=== PATIENT | male | born 1935 | race Caucasian/White ===

== ENCOUNTER 2023-03-26 10:34 | Outpatient (CLI) | payer MEDICARE, SELFPAY ==
[2023-03-26 11:41] LABS: Anion Gap 7 mmol/L (8-16); Blood Urea Nitrogen 20 mg/dL (7-18); Calcium 8.9 mg/dL (8.5-10.1); Carbon Dioxide 30 mmol/L (21-32); Chloride 100 mmol/L (98-108); Estimated Glomerular Filt Rate 55; Glucose 80 mg/dL (70-99); Osmolality Calculated 285 mOsm/kg (285-295); Potassium 4.3 mmol/L (3.5-5.1); Sodium 137 mmol/L (136-145)
== END 2023-03-26 10:35 | disposition home or self-care (01) ==
PROVIDERS: PCP Family Medicine; Visit Provider Anesthesiology
DX: Z01.818 Encounter for other preprocedural examination (principal); Z79.899 Other long term (current) drug therapy
CPT/HCPCS: 36415; 80048

== ENCOUNTER 2023-03-29 04:08 | Day surgery (SDC) | payer MEDICARE, SELFPAY ==
[2023-03-22 11:44] VITALS: BMI 25.1
--- NOTE | 2023-03-22 11:51 | PC.NURSE ---
Report to the Outpatient Waiting Room, entrance under the green pavilion located off [facility], at time ___0600____ on date ___03/29/23____. Planned Procedure Time: ___729 . Time changes happen often and if your time is changed the preop area will call you the afternoon before. - You and your visitor will be asked to self-screen and do not enter if you have any COVID symptoms. - A mask is optional within the hospital at this time. Patients may have clear liquids (water, carbonated beverages, clear teas, apple juice) until 3 hours prior to surgery (0430 AM) with a maximum of 20 ounces. - No food from midnight until time of surgery - Infants may have breast milk until 4 hours before surgery, formula 6 hours prior to surgery. - Children will be allowed to drink immediately following surgery. If applicable, please bring a bottle or sippy cup to assist with drinking. Juice, water, soda, and popsicles are readily available. For infants on formula, please bring formula the day of surgery. Pacifiers are allowed. Take the following medications with a SIP of water the morning of surgery: ____AMLODIPINE DO NOT STOP ANY OF YOUR OTHER PRESCRIPTION MEDICATIONS PRIOR TO SURGERY ?EXCEPT THE FOLLOWING Medications to discontinue per physician NONE Date to take last dose Please no make-up, nail serbian, hairspray, perfume, deodorant, or body powder the day of surgery. No jewelry (including any body piercings) or valuables the day of surgery, leave them at home. Please take a shower or bath the night before, or the morning of, surgery with an antibacterial soap. Wear comfortable, loose fitting clothing. Children are encouraged to wear pajamas. - Jewelry must be removed prior to entering the operating room. Rings and piercings that are not removed may be cut off. - The hospital will not accept responsibility for valuables. - Please leave all valuables, including medications, at home the day of surgery. If you are going home after surgery, a licensed city bus driver must drive you home. - NO public transportation without another adult if you receive anesthesia. - We recommend that an adult stay with you for 24 hours following discharge. - We also recommend that you do not drive, make important decision, drink alcoholic beverages, or take any drugs that were not prescribed by your health care provider for at least 24 hours after your discharge time. For Pediatric surgeries, we recommend two adults accompany the child home. Follow any additional instructions given to you from your surgeon. If you or anyone in your household have experienced Covid symptoms in the past week, please notify your surgeon or the nurse liaison at the phone number below for possible testing. Telephone instructions given to _PATIENT_and asked if any additional questions and then verbalized understanding. Patient advised to call surgeon office or pre surgery nurse liaison [phone] if any additional questions.
[2023-03-29] VITALS (8 sets, daily range): BP systolic 119–158; BP diastolic 55–71; PULSE 79–99; RESP 14–16; TEMP 36.6–37.1; O2SAT 96–100
[2023-03-29] MEDS: LACTATED RINGERS 1,000 ML 30 ML IV CONT (07:01)
--- NOTE | 2023-03-29 07:11 | P.PNAN_ITS ---
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 Patient Data Age: 87 Gender: M Height: 1.78 m Weight: 76.9 kg Allergies Allergy/AdvReac Type Severity Reaction Status Date / Time No Known Allergies Allergy Verified 03/29/23 06:13 Home Medications Medication Instructions Recorded Confirmed Type amlodipine 2.5 mg tablet 2.5 mg PO DAILY 03/22/23 03/22/23 History finasteride 5 mg tablet 5 mg PO DAILY 03/22/23 03/22/23 History lisinopril 20 1 tablet PO DAILY 03/22/23 03/22/23 History mg-hydrochlorothiazide 12.5 mg tablet Patient hx anesthesia problems: none Family hx anesthesia problems: none Results Review: All pre-operative results and documents have been reviewed as part of the pre-operative evaluation. [facility] Social History Social History Smoking status: Never smoker Second hand tobacco smoke exposure: No Alcohol intake: never Substance use: never Substance use type: does not use Living arrangements: with family Spiritual care concerns: No Anes - Eval Final PreProcedure Day of Procedure 03/29/23 07:11 Patient weight: normal Heart: regular rate and rhythm Lungs: clear to auscultation Airway: Mallampati scale class II Neurological: alert and oriented Last oral intake: >/= 8 hours ASA classification: III Emergent: no Anesthetic plan: proceed Anesthesia type and monitoring: general GIVS (flexibile LMA) and standard monitoring Results Review: All pre-operative results and documents have been reviewed as part of the pre- operative evaluation. Informed Consent: The patient's anesthetic plan and its attendant risks and benefits were discussed with the patient/family/POA. Questions were solicited and answers provided to the satisfaction of the patient/family/POA.
--- NOTE | 2023-03-29 07:13 | WPDHPUPDATE1 ---
History and Physical Update Update Date/Time: 03/29/23 07:13 History and Physical has been reviewed, including an updated exam of the patient. There are NO changes in the patient's condition. Risks, benefits, and alternatives have been discussed and questions answered. Patient agrees to proceed with procedure.
--- NOTE | 2023-03-29 08:16 | SUR.OPER ---
Gisela JIN handed fresh/frozen specimen to Lima in pathology
[2023-03-29] MEDS: LIDO 1%/EPINEPHRINE 1:100,000 20 ML VIAL 4 ML INFILTRATE (08:43)
[2023-03-29] MEDS: BALANCED SALT SOLN OPHTH IRRIG 30 ML BTL EACH EYE (08:44)
--- NOTE | 2023-03-29 10:06 | P.OP_ITS ---
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 He was then rolled to the operating room and was placed supine on the operating table. The patient was given sedation anesthesia with LMA placement. The entire face and neck were prepped and draped in usual fashion. The site was carefully outlined with a pen and locally infiltrated with 1% lidocaine with epinephrine. The incision was made around the mass as marked and the mass was taken off in the subcutaneous layer which also extended through the fascia of the orbicularis were tumor was noted to invade. The specimen was marked at the most superficial aspect with a suture for 12 o'clock. We waited for the pathologist report before proceeding. The diagnosis was basal cell carcinoma completely excised. This gentleman is 88 years old with somewhat lax skin. He shows effacement of the Cupid's bow and philtral columns consistent with his age. The skin was undermined sufficiently to approximate the skin margins however this produced a significant protrusion of orbicularis and mucosa at the free margin of the lip. The temporary closure of the skin with that also produced a peak on the white roll that seemed unsatisfactory. A Z-plasty was designed at that point and marked. A full-thickness wedge of the lip was also taken to reduce mass of the orbicularis and mucosa. The Z-plasty was incised elevated rotated to drop the white roll caudally. This was tailored and inset with Vicryl, nylon and chromic. The orbicularis was repaired with 4-0 Vicryl involving the muscular fascia. And the mucosa and wet vermilion were closed with interrupted 5 0 chromic sutures. Satisfactory repair seemed to have been achieved. The patient was extubated and transported to the recovery room stable condition. Estimated Blood Loss -10.0 Drains No Packing No Pathology Yes Complications No immediate complications Condition Stable Disposition PACU
== END 2023-03-29 11:05 | disposition home or self-care (01) ==
PROVIDERS: PCP Family Medicine; Visit Provider Plastic Surgery
PROC: (CPT 14060; principal; 2023-03-29 07:30)
DX: C44.01 Basal cell carcinoma of skin of lip (principal)
CPT/HCPCS: 14060; 88305; 88331; 88332; A9270; J2405; J2704; J3010; J7120